=== PATIENT | male | born 1975 | race Hispanic/Latino ===

== ENCOUNTER 2017-09-09 16:22 | Emergency (ER) | payer SELFPAY ==
--- NOTE | 2017-09-09 16:35 | C.PDOC ---
History Of Present Illness 42 year old male with a PMHx of diabetes mellitus presents to the emergency department status-post a right leg abrasion which he suffered two days ago. Patient currently complains of increasing redness to the area, which has not improved with Neosporin use. Patient denies other associated symptoms. R LEG ABRASION 2 DAYS AGO CO INCR REDNESS. NO IMPROVE W NEOSPORIN. DENIES OTHER ASSOC SX. HO DM EXAM SKIN HEALING ABRASION R LOWER LEG W LOCAL GRANULOM CHANGES, ERYTHEMA. NO SWELL, TEND, FLUCTUANCE, LYMPHANGITIS REMAINDER NEG Time Seen by Provider: 09/09/17 16:32 Chief Complaint (Nursing): Lower Extremity Problem/Injury History Per: Patient History/Exam Limitations: no limitations Onset/Duration Of Symptoms: Days (2) Current Symptoms Are (Timing): Still Present Past Medical History Reviewed: Historical Data, Nursing Documentation, Vital Signs Vital Signs: Last Vital Signs Temp 99.5 F 09/09/17 16:26 Pulse 100 H 09/09/17 16:26 Resp 20 09/09/17 16:26 BP 143/87 09/09/17 16:26 Pulse Ox 98 09/09/17 16:37 - Medical History PMH: Diabetes Surgical History: No Surg Hx Family History: States: No Known Family Hx - Social History Hx Alcohol Use: No Hx Substance Use: No Review Of Systems Except As Marked, All Systems Reviewed And Found Negative. Musculoskeletal: Positive for: Leg Pain Skin: Positive for: Other (abrasion to the right leg with increasing erythema) Physical Exam - Physical Exam Appears: Non-toxic, No Acute Distress Skin: Warm, Other (healing abrasion to the right lower leg with local granulom changes and erythema) Head: Atraumatic, Normacephalic Eye(s): bilateral: Normal Inspection Nose: Normal Chest: Symmetrical Cardiovascular: Rhythm Regular Respiratory: Normal Breath Sounds Extremity: Normal ROM, No Tenderness, No Swelling, No Other (fluctuance, lymphangitis) Neurological/Psych: Oriented x3, Normal Speech, Normal Cognition, No Other ( focal deficits) ED Course And Treatment O2 Sat by Pulse Oximetry: 98 (RA) Pulse Ox Interpretation: Normal Disposition Counseled Patient/Family Regarding: Diagnosis, Need For Followup, Rx Given - Disposition Referrals: YOUR,PMD [Other] Disposition: HOME/ ROUTINE Disposition Time: 16:34 Condition: GOOD Prescriptions: Cephalexin [cephalexin] 500 mg PO BID #14 cap Sulfamethoxazole/Trimethoprim [Bactrim DS 800 mg-160 mg] 1 tab PO BID #14 tab Instructions: Cellulitis (Skin Infection), Adult (DC) Forms: [facility] (Andorran) - Clinical Impression Clinical Impression: Laceration of lower leg with infection, Cellulitis - Scribe Statement The provider has reviewed the documentation as recorded by the Scribe (Kaiser Avery) Provider Attestation: All medical record entries made by the Scribe were at my direction and personally dictated by me. I have reviewed the chart and agree that the record accurately reflects my personal performance of the history, physical exam, medical decision making, and the department course for this patient. I have also personally directed, reviewed, and agree with the discharge instructions and disposition.
[2017-09-09 16:37] VITALS: BP 143/87; PULSE 100; RESP 20; TEMP 99.5; O2SAT 98
== END 2017-09-09 16:47 | disposition home or self-care (01) ==
LOC: C.ER 16:22
DX: S81.811A Laceration without foreign body, right lower leg, initial encounter (principal); L03.115 Cellulitis of right lower limb; X58.XXXA Exposure to other specified factors, initial encounter; E11.9 Type 2 diabetes mellitus without complications